=== PATIENT | female | born 1995 | race Caucasian/White ===

== ENCOUNTER 2017-03-03 20:17 | Emergency (ER) | payer OTHER ==
[~2017-03-03 20:17] MED LIST: NO MEDS
== END 2017-03-03 20:43 | disposition left against medical advice (07) ==
LOC: EMS 20:20
DX: M25.579 Pain in unspecified ankle and joints of unspecified foot (principal); Z53.21 Procedure and treatment not carried out due to patient leaving prior to being seen by health care provider